=== PATIENT | male | born 1945 | race Caucasian/White ===

== ENCOUNTER 2018-07-15 09:29 | Emergency (ER) | payer OTHER ==
[~2018-07-15] VITALS: Ht 167.6 cm; Wt 73.9 kg
== END 2018-07-15 14:50 | disposition home or self-care (01) ==
LOC: ER 09:29
DX: K60.2 Anal fissure, unspecified (principal); K62.5 Hemorrhage of anus and rectum

== ENCOUNTER 2018-08-08 08:53 | Emergency (ER) | payer OTHER ==
[~2018-08-08] VITALS: Ht 165.1 cm; Wt 73.5 kg
== END 2018-08-08 13:28 | disposition home or self-care (01) ==
LOC: ER 08:53
DX: S62.101A Fracture of unspecified carpal bone, right wrist, initial encounter for closed fracture (principal); W01.0XXA Fall on same level from slipping, tripping and stumbling without subsequent striking against object, initial encounter; Y93.89 Activity, other specified; Y92.098 Other place in other non-institutional residence as the place of occurrence of the external cause; Y99.8 Other external cause status

== ENCOUNTER 2021-08-12 09:04 | Emergency (ER) | payer OTHER ==
[~2021-08-12] VITALS: Ht 165.1 cm; Wt 75.3 kg
[2021-08-12] MEDS ORDERED: ZOCOR80 MG PO (09:16)
[2021-08-12] MEDS ORDERED: AVAPRO75 MG PO (09:21)
== END 2021-08-12 11:36 | disposition home or self-care (01) ==
LOC: ER 09:04
DX: S50.12XA Contusion of left forearm, initial encounter (principal); W18.09XA Striking against other object with subsequent fall, initial encounter; Y93.89 Activity, other specified; Y92.018 Other place in single-family (private) house as the place of occurrence of the external cause; Y99.8 Other external cause status

== ENCOUNTER 2022-03-10 09:09 | Inpatient (IN) | payer OTHER ==
[~2022-03-10] VITALS: Ht 162.6 cm; Wt 73.9 kg
[~2022-03-10 09:09] MED LIST: AVAPRO75 MG PO; ZOCOR80 MG PO
[2022-03-10] MEDS ORDERED: IRBESARTAN75 MG PO (09:24)
[2022-03-10] MEDS ORDERED: ST. JOSEPH ASPI81 M2 PO (09:24)
[2022-03-10] MEDS ORDERED: SIMVASTATIN20 MG PO (09:24)
[2022-03-10] MEDS ORDERED: OMEGA-3 ACID ETH1 GM PO (09:24)
--- NOTE | 2022-03-10 09:24 | NUR ---
SE RECIBE PACIENTE ALERTA, ORIENTADO X 3 ESFERAS REFIERE TENER [facility] , TOS , DOLOR DE CUERPO Y FIEBRE DESDE EL . SE ESTIMAN S/V TEMPERATURA 100.8. SE PRESENTA A .
--- NOTE | 2022-03-10 09:37 | NUR ---
SE PRESENTA PACIENTE A DR. OH CON LOS SIGNOS Y SINTOMAS REFIERE UBICARLO EN AREA DE FAST TRACK.
--- NOTE | 2022-03-10 10:26 | NUR ---
PTE ALERTA,ESTBLE Y ORIENTADO.SE EDUCA SOBRE EL TRATAMIENTO QUE SE LE REALIZARA EN EL HOSPITAL Y [facility] REFIERE ENTENDER.SE LE WARNER MUESTRAS DE SANGRES Y SE LE ADMINISTRA MEDICAMENTOS.PATRICIA ORDEN MEDICA
--- NOTE | 2022-03-10 12:40 | NUR ---
SE LE ADMINISTRAN MEDICAMENTOS POR ORDEN MEDICA, SE LLAMA A PERSONAL DE TERAPIA PARA NOTIFICAR GASES ARTERIALES.
--- NOTE | 2022-03-10 17:08 | NUR ---
SE RECIBE PTE ALERTA Y ORIENTADO X3 EN BUTACA. PTE CANALIZADO AREA KEI DE EDEMA Y DE ENROJECIMIENTO. PTE EN ESPERA DE CONSULTA CON MEDICINA INTERNA.
[2022-03-13] MEDS ORDERED: NORFLEX100MG (13:05)
[2022-03-13] MEDS ORDERED: DICLOFENAC POTA50 MG (13:05)
== END 2022-03-15 17:21 | disposition home or self-care (01) | DRG 194 ==
LOC: ER 09:09 → SURG 19:14 → SEC-K 19:14 → SURG 19:29 → MEDJ 03-13 14:48
PROVIDERS: ADMIT Internal Medicine; ATTEND Internal Medicine
PROC: BW24ZZZ Computerized Tomography (CT Scan) of Chest and Abdomen (ICD-10-PCS; principal; 2022-03-10)
DX: J16.8 Pneumonia due to other specified infectious organisms (principal); N17.8 Other acute kidney failure; I10 Essential (primary) hypertension; R06.02 Shortness of breath; D72.828 Other elevated white blood cell count; Z72.0 Tobacco use; E88.09 Other disorders of plasma-protein metabolism, not elsewhere classified; Z20.822 Contact with and (suspected) exposure to COVID-19

== ENCOUNTER 2024-04-02 07:40 | Outpatient (CLI) | payer OTHER ==
[~2024-04-02 07:40] MED LIST changes: +DICLOFENAC POTA50 MG; +IRBESARTAN75 MG PO; +NORFLEX100MG; +OMEGA-3 ACID ETH1 GM PO; +SIMVASTATIN20 MG PO; +ST. JOSEPH ASPI81 M2 PO
== END 2024-04-02 07:46 | disposition home or self-care (01) ==
LOC: SONOGRAMA 07:40
PROVIDERS: ATTEND Internal Medicine
DX: M25.512 Pain in left shoulder (principal); I10 Essential (primary) hypertension; E03.9 Hypothyroidism, unspecified; E78.9 Disorder of lipoprotein metabolism, unspecified; I65.29 Occlusion and stenosis of unspecified carotid artery; I70.0 Atherosclerosis of aorta; L13.0 Dermatitis herpetiformis; N30.90 Cystitis, unspecified without hematuria